=== PATIENT | male | born 1995 | race Caucasian/White ===

== ENCOUNTER 2022-11-13 11:52 | Emergency (ER) | payer OTHER, SELFPAY ==
[2022-11-13 12:03] VITALS: BP 134/93; PULSE 98; RESP 16; TEMP 37.2; O2SAT 100; BMI 26.9
--- NOTE | 2022-11-13 12:30 | PC.NURSE ---
pt states he was camping and when he returned home he suddenly had intense sinus congestions with sinus headache and associated ear pain. his 15month old was also sick recently with bilateral ear infections. pt states he has had a fever as high as 105F with temporal thermometer. he has been taking OTC cold medications and ibuprofen and tylenol that does help but he still has a fever in the morning when he wakes up. states he has a cough but it seems to be from the stuff running down the back of his throat, not due to actual resp need to cough
--- NOTE | 2022-11-13 12:46 | ED.URI ---
HPI - URI/Sore Throat <Sanna Sawyer PA-C - Last Filed: 11/13/22 14:51> General Chief Complaint: Upper Respiratory Symptoms Stated Complaint: Cough, Fever, Sinus/ears/nose- worsening Time Seen by Provider: 11/13/22 12:02 Mode of arrival: Family Vehicle History of Present Illness HPI Narrative: Patient is a 27-year-old male reporting for evaluation of cold symptoms since descending from the visitor center at [facility] last Tuesday, 7 days ago. Reports that the day after, he had body aches chills, and severe sinus congestion. He says that via temporal thermometer, his temperature went up to 105.5 and down to 100 with ibuprofen. [place] He says he tested negative for COVID and flu. He has been treating with [id number] ibuprofen, and cold medicines to help with congestion. He says that he feels better during the day over this last week, but much worse at night. He denies any difficulty breathing, he reports minor cough related to sinus drainage. He denies headache, but does report some sinus pressure. Starting 2 days ago, he notes he feels his ears are stopped up, and he notes some pain particularly in his left ear. He says that his infant was recently seen for similar symptoms and diagnosed with an ear infection, and he was concerned that he may have the same. Denies any known drug allergies, or chronic conditions for which she takes medicine. He denies tooth pain. He denies any light sensitivity. Related Data Previous Rx's Medication Instructions Recorded amoxicillin 875 mg-potassium 1 tab PO BID #20 tabs 11/13/22 clavulanate 125 mg tablet Allergies Allergy/AdvReac Type Severity Reaction Status Date / Time No Known Drug Allergies Allergy Verified 11/13/22 12:05 Review of Systems <Sanna Sawyer PA-C - Last Filed: 11/13/22 14:51> Review of Systems Narrative: Per HPI Patient History <Sanna Sawyer PA-C - Last Filed: 11/13/22 14:51> Social History Smoking Status: Never smoker Smoking Status: Never smoker Substance Use Type: does not use Exam <Sanna Sawyer PA-C - Last Filed: 11/13/22 14:51> Narrative Exam Narrative: GENERAL: 27 year old patient appears stated age. Well-developed patient, in no acute distress. HEAD: Atraumatic. Normocephalic. EYES: Pupils equal round. No scleral icterus. No injection or drainage. ENT: Nose with clear rhinorrhea. Throat with mild erythema, No tonsillar hypertrophy or exudate noted. Airway patent. TM visualized bilaterally with erythematous bulging worse on left than on right, canals clear bilaterally. Pinna, tragus are non tender to palpation. NECK: Trachea midline. Non tender, No cervical, peritonsillar, submandibular lymphadenopathy CARDIOVASCULAR: Regular rate and rhythm without murmurs, gallops, or rubs. RESPIRATORY: Scattered wheezes throughout lungs, not consistent, not clearing completely with cough, no rales or rhonchi NEURO: AOx3. SKIN: No rash or erythema of visible areas Initial Vital Signs Initial Vital Signs: Vital Signs Temperature 98.9 F 11/13/22 12:03 Pulse Rate 98 H 11/13/22 12:03 Respiratory Rate 16 11/13/22 12:03 Blood Pressure 134/93 H 11/13/22 12:03 Pulse Oximetry 100 11/13/22 12:03 Oxygen Delivery Method Room Air 11/13/22 12:03 <Jasmine Jeter DO - Last Filed: 11/14/22 07:21> Initial Vital Signs Initial Vital Signs: Vital Signs Temperature 98.9 F 11/13/22 12:03 Pulse Rate 98 H 11/13/22 12:03 Respiratory Rate 16 11/13/22 12:03 Blood Pressure 134/93 H 11/13/22 12:03 Pulse Oximetry 100 11/13/22 12:03 Oxygen Delivery Method Room Air 11/13/22 12:03 Course <Sanna Sawyer PA-C - Last Filed: 11/13/22 14:51> Orders Ordered: ED Orders 11/13/22 13:02 Covid-19 + FLU A/B + RSV - PCR Stat Vital Signs Vital signs: Vital Signs - 8 hr 11/13/22 12:03 11/13/22 13:59 Temperature 98.9 F Pulse Rate 98 H 87 Respiratory Rate 16 16 Blood Pressure 134/93 H 125/72 Pulse Oximetry 100 98 Oxygen Delivery Method Room Air Room Air <Jasmine Jeter DO - Last Filed: 11/14/22 07:21> Orders Ordered: ED Orders 11/13/22 13:02 Covid-19 + FLU A/B + RSV - PCR Stat Vital Signs Vital signs: Vital Signs - 8 hr 11/13/22 12:03 11/13/22 13:59 Temperature 98.9 F Pulse Rate 98 H 87 Respiratory Rate 16 16 Blood Pressure 134/93 H 125/72 Pulse Oximetry 100 98 Oxygen Delivery Method Room Air Room Air MDM - URI/Sore Throat <Sanna Sawyer PA-C - Last Filed: 11/13/22 14:51> Lab Data Labs: Lab Results 11/13/22 Range/Units 13:02 SARS-CoV-2 (PCR) Negative (Negative) Influenza A (RT-PCR) Flu a negative (NEGATIVE) Influenza B (RT-PCR) Flu b negative (NEGATIVE) RSV (PCR) Negative (Negative) MDM Narrative Medical decision making narrative: CC: Nasal congestion x1 week, left ear discomfort x2 days. Complicating co-morbidities: Denies chronic conditions. Data collected from: patient Social determinants of health that may influence the patients condition: None reported Medical records reviewed: Differential considered: Otitis media, sinusitis, upper respiratory infection, COVID, flu, RSV, pneumonia Exam documented above, pertinent findings include: Bulging TM bilaterally, scattered wheezes on lung exam not clearing with coughing. Patient denies shortness of breath, regular coughing, and reports his worse symptom is his congestion, and sinus pressure. Lab Test results independently reviewed as above. Pertinent findings: With patient consent, tested for COVID, flu, RSV. Imaging studies independently reviewed: Discussed with patient pros and cons of chest x-ray based upon lung exam findings, and due to his history of no difficulty breathing, and no cough he opted not to receive chest x-ray today. Consultations: Discussed case with Dr. Jeter. Treatments: Due to appearance of tympanic membrane, I will treat with Augmentin today. Discussed with patient that if his symptoms of pain in his ear continue for longer than 3 days, I recommend he start the antibiotic to help with his symptoms. We discussed supportive care including increased hydration, continued use of [id number] cold medicines, and rest. Re-evaluations: No change between initial exam and discussion of treatment options. Discussion: Discussed case with Dr. Jeter. Patient presented with nasal congestion and sinus pressure for 1 week with fevers at the beginning of the week which have improved. He denies dyspnea, cough, but reports his worst symptoms are sinus pressure and nasal congestion. He has been treating with cold medicines and ibuprofen. We have repeated COVID flu RSV testing today which were negative. Continue to monitor symptoms and return for evaluation if difficulty breathing develops or overall condition worsens follow up in the emergency department for further evaluation. Findings on exam were positive for otitis media. I provided an antibiotic for treatment which I encouraged him to wait to take until after 3 days of ear pain have past with no improvement. If his symptoms do not improve, recommend follow up with his primary care provider for continued monitoring. Patient has been called and notified of results. Disposition: see below, along with detailed discharge instructions that have been reviewed with patient as well as indications for ED re-evaluation and additional outpatient follow up <Jasmine Jeter DO - Last Filed: 11/14/22 07:21> Lab Data Labs: Lab Results 11/13/22 Range/Units 13:02 SARS-CoV-2 (PCR) Negative (Negative) Influenza A (RT-PCR) Flu a negative (NEGATIVE) Influenza B (RT-PCR) Flu b negative (NEGATIVE) RSV (PCR) Negative (Negative) Discharge Plan Departure Patient Disposition: Home Clinical Impression: Upper respiratory infection, Otitis media Instructions: Middle Ear Infection Activity Restrictions/Additional Instructions: We have repeated COVID flu RSV testing today and I will call with results. Continue to monitor symptoms and return to Emergency Department for evaluation if difficulty breathing develops or overall condition worsens. Findings were consistent with possible ear infection as well as upper respiratory infection. I provided an antibiotic for treatment for possible otitis media which I encouraged you to wait to take until after 3 days of ear pain have passed with no improvement. I also recommend treatment for comfort with a warm compress over painful ear. If your symptoms continue without improving, you may need to follow up with your primary care provider for continued monitoring. Prescriptions: New amoxicillin-pot clavulanate 875-125 mg tablet 1 tab PO BID Qty: 20 0RF Referrals: [facility] [Primary Care Provider] - Stand Alone Forms: Patient Portal/API <Jasmine Jeter DO - Last Filed: 11/14/22 07:21> Cosign ED Attending Cosarturoature Attestation: I was immediately available in the department for consultation. Documentation has been reviewed.
[2022-11-13 13:56] LABS: Influenza A - CEPHEID Flu A NEGATIVE (NEGATIVE); Influenza B - CEPHEID Flu B NEGATIVE (NEGATIVE); Respiratory Syncytial Virus Negative (Negative)
[2022-11-13 13:57] LABS: COVID-19 CEPHEID 4-PLEX PCR Negative (Negative)
[2022-11-13 13:59] VITALS: BP 125/72; PULSE 87; RESP 16; O2SAT 98
== END 2022-11-13 14:00 | disposition home or self-care (01) ==
PROVIDERS: Emergency Provider Physician Assistant
DX: J06.9 Acute upper respiratory infection, unspecified (principal); H66.92 Otitis media, unspecified, left ear; R05.9 Cough, unspecified; Z20.822 Contact with and (suspected) exposure to COVID-19
CPT/HCPCS: 0241U; 99282